=== PATIENT | female | born 1960 | race Caucasian/White ===

== ENCOUNTER 2016-04-21 21:50 | Emergency (ER) | payer OTHER ==
--- NOTE | 2016-04-21 23:24 | ED ORDER SUMMARY ---
..... Patient: IRMA GUZMAN OrderSheet [facility] VisitID: [id number] [address] [place] [address] 55y, F Registration Date/Time: 04/21/2016 ORDER SHEET Weight: 102.0 kg (stated) Allergies: Penicillins GENERAL ORDERS: US Pelvic Complete w Transvag Urgent (22:23 04/21/2016 Corey Ryan) (Ack 22:31 NHouse ER Tech1) (23:48 AMcQuoid ER Tech1) CBC w Diff Urgent (22:24 04/21/2016 Corey Ryan) (Ack 22:31 NHouse ER Tech1) (23:48 AMcQuoid ER Tech1) UA-Culture if indicated Urgent (22:24 04/21/2016 Corey Ryan) (Ack 22:31 NHouse ER Tech1) (23:48 AMcQuoid ER Tech1) BMP Urgent (22:24 04/21/2016 Corey Ryan) (Ack 22:31 NHouse ER Tech1) (23:48 AMcQuoid ER Tech1) Serum Quantitative Urgent (22:24 04/21/2016 Corey Ryan) (Ack 22:31 NHouse ER Tech1) (23:48 AMcQuoid ER Tech1) MEDICATION ORDERS: IV FLUIDS: Morphine IV 4 mg (HIGH ALERT MEDICATION, NOW) (22:22 04/21/2016 Corey Ryan) (22:52 EInderbitpepe R.N.) Zofran IV 4 mg (NOW) (22:22 04/21/2016 Corey Ryan) (22:50 EInderbitzen R.N.) IV Saline Lock (22:24 04/21/2016 Corey Ryan) (22:43 EInderbitzen R.N.) ORDER SHEET NOTES: [Electronically signed by Neisha Koroma R.N. (23:57 04/21/2016)] [Electronically signed by Alberto Markham Dr. (22:48 04/28/2016)] [Electronically locked/signed by Neisha Koroma R.N. (23:57 04/21/2016)]
--- NOTE | 2016-04-21 23:24 | ED ORDER SUMMARY ---
..... Patient: IRMA GUZMAN OrderSheet [facility] VisitID: [id number] [address] [place] [address] 55y, F Registration Date/Time: 04/21/2016 ORDER SHEET Weight: 102.0 kg (stated) Allergies: Penicillins GENERAL ORDERS: US Pelvic Complete w Transvag Urgent (22:23 04/21/2016 Corey Ryan) (Ack 22:31 NHouse ER Tech1) (23:48 AMcQuoid ER Tech1) CBC w Diff Urgent (22:24 04/21/2016 Corey Ryan) (Ack 22:31 NHouse ER Tech1) (23:48 AMcQuoid ER Tech1) UA-Culture if indicated Urgent (22:24 04/21/2016 Corey Ryan) (Ack 22:31 NHouse ER Tech1) (23:48 AMcQuoid ER Tech1) BMP Urgent (22:24 04/21/2016 Corey Ryan) (Ack 22:31 NHouse ER Tech1) (23:48 AMcQuoid ER Tech1) Serum Quantitative Urgent (22:24 04/21/2016 Corey Ryan) (Ack 22:31 NHouse ER Tech1) (23:48 AMcQuoid ER Tech1) MEDICATION ORDERS: IV FLUIDS: Morphine IV 4 mg (HIGH ALERT MEDICATION, NOW) (22:22 04/21/2016 Corey Ryan) (22:52 EInderbitpepe R.N.) Zofran IV 4 mg (NOW) (22:22 04/21/2016 Corey Ryan) (22:50 EInderbitzen R.N.) IV Saline Lock (22:24 04/21/2016 Corey Ryan) (22:43 EInderbitzen R.N.) ORDER SHEET NOTES: [Electronically signed by Neisha Koroma R.N. (23:57 04/21/2016)] [Electronically signed by Alberto Markham Dr. (22:48 04/28/2016)] [Electronically locked/signed by Neisha Koroma R.N. (23:57 04/21/2016)]
--- NOTE | 2016-04-21 23:24 | ED NURSING NOTES ---
Clinical Report - Nurses [facility] [address] [place] [address] 04/21/2016 21:53 Patient: IRMA GUZMAN TRIAGE Triage time 22:Apr 21 2016. Acuity: LEVEL 3. Chief Complaint: ABDOMINAL PAIN. 22:13 04/21/16. --22:20 Neisha Koroma R.N. 22:13 04/21/16. BP: 129/84. HR: 77. RR: 16. O2 saturation: 100%. Temp: 98.1 F. Pain level now: 08/11. --22:20 Neisha Koroma R.N. SEPSIS SCREEN: Sepsis Screen: negative. Negative (no infection suspected/documented). --22:20 Neisha Koroma R.N. Weight: 102 kg stated. Height/Length: 64 inches Per Patient. BMI: 38.6. --22:12 Neisha Koroma R.N. Medications Percocet Oral. --22:14 Neisha Koroam R.N. Synthroid Oral. --22:14 Neisha Koroma R.N. Medication/allergy information source: the patient. --22:20 Neisha Koroma R.N. Allergies Penicillins. --22:18 Neisha Koroma R.N. The following entry was struck by Neisha Koroma R.N., 22:18 (04/21/16) Reason - wrong value. <<STRICKEN ENTRY-- No Known Drug Allergy. --22:14 Neisha Koroma R.N. --END STRIKE>>. History Arrived by private vehicle. Historian: patient. Accompanied by family. Onset. (3 days). ( Pain started 3 days ago, acutely worse tonight with nausea. Took a percocet that she had left over following dental surgery with some relief.). She has had nausea, constipation and abdominal pain. No vomiting, diarrhea or fever. Last oral intake by patient was (just prior to arrival). Treatment CORE DIPPER: None. SOCIAL HX: Never smoker. No alcohol use or drug use. No recent travel. No infectious disease exposure. No known contact with a sick individual. ABUSE ASSESSMENT: No report of abuse. SELF HARM ASSESSMENT: A self harm assessment was performed. The patient answered "no" to the question "Have you recently felt down, depressed, or hopeless?", "Have you noticed less interest or pleasure in doing things?", "Do you have thoughts of harming or killing yourself?", "Are you here because you tried to hurt yourself?", "Have you ever tried to hurt yourself before today?", "Have you recently had thoughts about harming or killing others?" and "Do you have any dangerous items in your possession?". FALL RISK ASSESSMENT: Fall risk assessment completed. No fall risk identified. NUTRITIONAL RISK ASSESSMENT: The nutritional risk assessment revealed no deficiencies. FUNCTIONAL ASSESSMENT: Functional assessment: no impairments noted. LEARNING NEEDS ASSESSMENT: The learning needs assessment revealed no barriers. SKIN INTEGRITY ASSESSMENT: Skin integrity risk assessment completed. No skin integrity risk identified. --22:20 Neisha Koroma R.N. PROBLEMS: Hypothyroidism. --22:15 Neisha Koroma R.N. ADDITIONAL SURGERIES: . --22:15 Neisha Koroma R.N. Interventions ID band on patient. --22:20 Neisha Koroma R.N. PHYSICAL ASSESSMENT 22:20 04/21/16. Ambulatory to room. GENERAL / NEURO / PSYCH: Alert. Oriented X 4. Appears in pain and anxious. RESPIRATORY: Respirations not labored. Breath sounds within normal limits. CVS: Capillary refill less than 2 seconds. GI / : The patient has had nausea. Abdomen soft. Abdominal tenderness present. Abdominal tenderness in the lower abdomen. No guarding or rebound tenderness. No rebound tenderness, abdominal distention or diarrhea. SKIN: Skin is warm and dry. --22:29 Neisha Koroma R.N. NURSING PROGRESS NOTES 22:13 04/21/16. The initial plan of care for this patient includes an assessment with efforts to address the presence of pain; impairment of the gastrointestinal system; hydration needs. This plan of care was discussed with the patient. Patient gowned. Reassurance given. Patient identifiers checked. Call light placed in reach. Side rails up x 1. Bed placed in lowest position. Brakes of bed on. Patient ready for evaluation. --22:28 Neisha Koroma R.N. 22:25 04/21/16. Patient ID band checked for patient name and birthdate: patient confirmed. Instructions provided to collect clean catch urine and patient verbalized understanding. Clean catch urine collected with return of yellow-colored clear urine; sample sent to lab for urinalysis. Specimen labeled in the presence of the patient. --22:29 Neisha Koroma R.N. 22:28 04/21/2016 Site #1 started via IV in the left antecubital space with an 20g angiocath, with aseptic technique and good blood return; one attempt. Blood drawn: rainbow set. Labeled in the presence of the patient and sent to the lab. Saline lock flushed with 10 mL saline. --22:28 Neisha Koroma R.N. 22:46 04/21/2016 Zofran (Ondansetron HCl) IVP 4 mg given over 1 minute(s) via site #1. Allergies verified and confirmed 5 rights. IV patency established. IV site checked: no pain, redness, or swelling. IV flushed thoroughly pre- and post-medication administration. IVP given by RN. --22:50 Neisha Koroma R.N. 22:46 04/21/2016 Morphine IVP 4 mg given over 2 minute(s) via site #1. Allergies verified, confirmed 5 rights and sedative warning given to the patient. IV patency established. IV site checked: no pain, redness, or swelling. IV flushed thoroughly pre- and post-medication administration. IVP given by RN. --22:52 Neisha Koroma R.N. 22:56 04/21/16. Bedside pelvic sonogram performed by lens coating technician. --22:56 Neisha Koroma R.N. DISPOSITION / DISCHARGE 23:55 04/21/2016 Site #1 removed upon discharge. Catheter intact. Bandaid applied. --23:55 Neisha Koroma R.N. 23:55 04/21/16. Condition at departure: improved and stable. The goals identified in the patient's plan of care were met. No learning barriers present. Discharge instructions provided and reviewed with the patient. Reviewed medication(s) side effects, precautions, dosing and course information. Prescription(s) given to the patient (percocet, zofran, motrin). Reviewed referral to a oracle adf consultant for followup and testing. Activity restrictions reviewed (no driving while taking percocet). Patient verbalized understanding. Written instructions provided in [place] Zealander. The patient was discharged home and accompanied by qa automation developer. She left the Emergency Department ambulatory and via private vehicle. Commodity Loan Clerk driving. FALL RISK ASSESSMENT: Fall risk assessment completed. No fall risk identified. --23:55 Neisha Koroma R.N. 23:55 04/21/16. BP: 120/89. HR: 78. RR: 16. O2 saturation: 100%. Temp: 98.5 F. Pain level now 2/10. --23:55 Neisha Koroma R.N. Departure time: 23:56 Apr 21 2016. --23:56 Neisha Koroma R.N. Locked/Released at 04/21/2016 23:57 by Neisha Koroma R.N.
--- NOTE | 2016-04-21 23:24 | ED NURSING NOTES ---
Clinical Report - Nurses [facility] [address] [place] [address] 04/21/2016 21:53 Patient: IRMA GUZMAN TRIAGE Triage time 22:Apr 21 2016. Acuity: LEVEL 3. Chief Complaint: ABDOMINAL PAIN. 22:13 04/21/16. --22:20 Neisha Koroma R.N. 22:13 04/21/16. BP: 129/84. HR: 77. RR: 16. O2 saturation: 100%. Temp: 98.1 F. Pain level now: 08/11. --22:20 Neisha Koroma R.N. SEPSIS SCREEN: Sepsis Screen: negative. Negative (no infection suspected/documented). --22:20 Neisha Koroma R.N. Weight: 102 kg stated. Height/Length: 64 inches Per Patient. BMI: 38.6. --22:12 Neisha Koroma R.N. Medications Percocet Oral. --22:14 Neisha Koroma R.N. Synthroid Oral. --22:14 Neisha Koroma R.N. Medication/allergy information source: the patient. --22:20 Neisha Koroma R.N. Allergies Penicillins. --22:18 Neisha Koroma R.N. The following entry was struck by Neisha Koroma R.N., 22:18 (04/21/16) Reason - wrong value. <<STRICKEN ENTRY-- No Known Drug Allergy. --22:14 Neisha Koroma R.N. --END STRIKE>>. History Arrived by private vehicle. Historian: patient. Accompanied by family. Onset. (3 days). ( Pain started 3 days ago, acutely worse tonight with nausea. Took a percocet that she had left over following dental surgery with some relief.). She has had nausea, constipation and abdominal pain. No vomiting, diarrhea or fever. Last oral intake by patient was (just prior to arrival). Treatment THIRD OFFICER: None. SOCIAL HX: Never smoker. No alcohol use or drug use. No recent travel. No infectious disease exposure. No known contact with a sick individual. ABUSE ASSESSMENT: No report of abuse. SELF HARM ASSESSMENT: A self harm assessment was performed. The patient answered "no" to the question "Have you recently felt down, depressed, or hopeless?", "Have you noticed less interest or pleasure in doing things?", "Do you have thoughts of harming or killing yourself?", "Are you here because you tried to hurt yourself?", "Have you ever tried to hurt yourself before today?", "Have you recently had thoughts about harming or killing others?" and "Do you have any dangerous items in your possession?". FALL RISK ASSESSMENT: Fall risk assessment completed. No fall risk identified. NUTRITIONAL RISK ASSESSMENT: The nutritional risk assessment revealed no deficiencies. FUNCTIONAL ASSESSMENT: Functional assessment: no impairments noted. LEARNING NEEDS ASSESSMENT: The learning needs assessment revealed no barriers. SKIN INTEGRITY ASSESSMENT: Skin integrity risk assessment completed. No skin integrity risk identified. --22:20 Neisha Koroma R.N. PROBLEMS: Hypothyroidism. --22:15 Neisha Koroma R.N. ADDITIONAL SURGERIES: . --22:15 Neisha Koroma R.N. Interventions ID band on patient. --22:20 Neisha Koroma R.N. PHYSICAL ASSESSMENT 22:20 04/21/16. Ambulatory to room. GENERAL / NEURO / PSYCH: Alert. Oriented X 4. Appears in pain and anxious. RESPIRATORY: Respirations not labored. Breath sounds within normal limits. CVS: Capillary refill less than 2 seconds. GI / : The patient has had nausea. Abdomen soft. Abdominal tenderness present. Abdominal tenderness in the lower abdomen. No guarding or rebound tenderness. No rebound tenderness, abdominal distention or diarrhea. SKIN: Skin is warm and dry. --22:29 Neisha Koroma R.N. NURSING PROGRESS NOTES 22:13 04/21/16. The initial plan of care for this patient includes an assessment with efforts to address the presence of pain; impairment of the gastrointestinal system; hydration needs. This plan of care was discussed with the patient. Patient gowned. Reassurance given. Patient identifiers checked. Call light placed in reach. Side rails up x 1. Bed placed in lowest position. Brakes of bed on. Patient ready for evaluation. --22:28 Neisha Koroma R.N. 22:25 04/21/16. Patient ID band checked for patient name and birthdate: patient confirmed. Instructions provided to collect clean catch urine and patient verbalized understanding. Clean catch urine collected with return of yellow-colored clear urine; sample sent to lab for urinalysis. Specimen labeled in the presence of the patient. --22:29 Neisha Koroma R.N. 22:28 04/21/2016 Site #1 started via IV in the left antecubital space with an 20g angiocath, with aseptic technique and good blood return; one attempt. Blood drawn: rainbow set. Labeled in the presence of the patient and sent to the lab. Saline lock flushed with 10 mL saline. --22:28 Neisha Koroma R.N. 22:46 04/21/2016 Zofran (Ondansetron HCl) IVP 4 mg given over 1 minute(s) via site #1. Allergies verified and confirmed 5 rights. IV patency established. IV site checked: no pain, redness, or swelling. IV flushed thoroughly pre- and post-medication administration. IVP given by RN. --22:50 Neisha Koroma R.N. 22:46 04/21/2016 Morphine IVP 4 mg given over 2 minute(s) via site #1. Allergies verified, confirmed 5 rights and sedative warning given to the patient. IV patency established. IV site checked: no pain, redness, or swelling. IV flushed thoroughly pre- and post-medication administration. IVP given by RN. --22:52 Neisha Koroma R.N. 22:56 04/21/16. Bedside pelvic sonogram performed by crime lab technician. --22:56 Neisha Koroma R.N. DISPOSITION / DISCHARGE 23:55 04/21/2016 Site #1 removed upon discharge. Catheter intact. Bandaid applied. --23:55 Neisha Koroma R.N. 23:55 04/21/16. Condition at departure: improved and stable. The goals identified in the patient's plan of care were met. No learning barriers present. Discharge instructions provided and reviewed with the patient. Reviewed medication(s) side effects, precautions, dosing and course information. Prescription(s) given to the patient (percocet, zofran, motrin). Reviewed referral to a conference reservationist for followup and testing. Activity restrictions reviewed (no driving while taking percocet). Patient verbalized understanding. Written instructions provided in Norwegian. The patient was discharged home and accompanied by corporate trainer. She left the Emergency Department ambulatory and via private vehicle. Field Technical Support Consultant driving. FALL RISK ASSESSMENT: Fall risk assessment completed. No fall risk identified. --23:55 Neisha Koroma R.N. 23:55 04/21/16. BP: 120/89. HR: 78. RR: 16. O2 saturation: 100%. Temp: 98.5 F. Pain level now 2/10. --23:55 Neisha Koroma R.N. Departure time: 23:56 Apr 21 2016. --23:56 Neisha Koroma R.N. Locked/Released at 04/21/2016 23:57 by Neisha Koroma R.N.
--- NOTE | 2016-04-21 23:24 | ED CLINICAL REPORT ---
Clinical Report - Physicians/Mid Levels [facility] [address] [place] [address] 04/21/2016 21:53 Patient: IRMA GUZMAN Arrived- By private vehicle. Historian- patient. HISTORY OF PRESENT ILLNESS Chief Complaint: ABDOMINAL PAIN. Is still present and worsening. It was abrupt in onset and has been intermittent but is not gone now. At its maximum, severity described as moderate. When seen in the E.D., severity described as moderate. Modifying factors- worsened by movement. Relieved by rest. It is described as sharp and cramping. No radiation. It is described as located in the suprapubic area. No nausea, loss of appetite or diarrhea. No additional abdominal pain. (reports constipation recently. Last BM was several days ago.). No recent travel. Similar symptoms previously: None. Recent medical care: Not recently seen/assessed. REVIEW OF SYSTEMS No black stools, hematemesis, difficulty with urination, bloody stools or fever. No headache, sore throat, blurred vision, chest pain or difficulty breathing. She has had skin rash. All systems otherwise negative, except as recorded above. PAST HISTORY See nurses notes. Medications: Synthroid Oral. Percocet Oral. Allergies: Penicillins. SOCIAL HISTORY Never smoker. No alcohol use or drug use. No recent travel. Is a local resident. FAMILY HISTORY Negative. ADDITIONAL NOTES The nursing notes have been reviewed. PHYSICAL EXAM Vital Signs: Blood pressure normal. Oxygen saturation normal. Appearance: Alert. Oriented X3. No acute distress. CVS: Normal heart rate and rhythm. Heart sounds normal. Pulses normal. Respiratory: No respiratory distress. Breath sounds normal. Chest nontender. Abdomen: Soft and nontender. Abnormal bowel sounds (hypoactive). No organomegaly. No mass. Back: Normal inspection. Skin: Skin warm and dry. Normal skin color. No rash. Normal skin turgor. Extremities: Extremities exhibit normal ROM. No lower extremity edema. LABS, X-RAYS, AND EKG Pelvic Sonogram: PROCEDURE: US COMPLETE PELVIC W/TRANSVAG INDICATION: LOWER ABDO PAIN TECHNIQUE: Transabdominal and endovaginal noonan scale and color Doppler sonographic images of the female pelvis were obtained. 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 COMPARISON: None. FINDINGS: TRANSABDOMINAL SCANS: Moderate enlargement the uterus. Kidneys are normal. TRANSVAGINAL SCANS: Moderate enlargement the uterus secondary to fibroid changes (right body 6.2 cm, superior midline 4.0 cm with dystrophic calcifications). Ovaries not visualized (presumed atrophic). IMPRESSION: 1. Moderate enlargement of the uterus second multiple fibroids. The study was independently viewed by me and interpreted by the radiologist. The study was discussed with the radiologist (via pacs). Laboratory Tests: UA-Culture if indicated: (KAREN: 04/21/2016 22:18) ( Mscvd 04/21/2016 22:48) Final results Test Result Flag Units (Reference) URINE COLOR YELLOW URINE APPEARANCE CLEAR URINE GLUCOSE NEGATIVE (NEGATIVE) URINE BILIRUBIN NEGATIVE (NEGATIVE) URINE KETONE NEGATIVE (NEGATIVE) URINE SPECIFIC GRAVITY <= 1.005 L (1.010-1.030) URINE PH 5.5 (5.0-8.0) URINE PROTEIN NEGATIVE (NEGATIVE) URINE UROBILINOGEN 0.2 EU/dL (0.2-1.0) URINE NITRITE NEGATIVE (NEGATIVE) URINE BLOOD NEGATIVE (NEGATIVE) URINE LEUK ESTERASE NEGATIVE (NEGATIVE) URINE RBC NONE SEEN rbc/hpf (0-1) URINE WBC RARE wbc/hpf (0-1) URINE EPITHELIAL CELLS RARE EPI/hpf (0-5) URINE BACTERIA NONE SEEN (NONE SEEN) URINE COMMENT CULT NOT INDICATED URINE CULTURES ARE SET-UP BASED ON THE FOLLOWING CRITERIA:POSITIVE NITRITEPOSITIVE LEUKOCYTE ESTERASEGREATER THAN 10 WHITE BLOOD CELLSMODERATE (2+) OR GREATER BACTERIA CBC w Diff: (KAREN: 04/21/2016 22:18) ( MsgRcvd 04/21/2016 22:35) Final results Test Result Flag Units (Reference) WHITE BLOOD COUNT 11.2 K/uL (4.5-11.5) RED BLOOD COUNT 5.40 H M/uL (4.00-5.20) HEMOGLOBIN 14.5 gm/dL (12.0-16.0) HEMATOCRIT 44.3 % (36.0-46.0) MEAN CELL VOLUME 82 fL (80-100) MEAN CORPUSCULAR HGB 27 pg (26-34) MEAN CORPUSCULAR HGB CONC 33 g/dL (31-37) RED CELL DISTRIBUTION WIDTH 17.2 H % (11.6-14.8) PLATELET COUNT 269 K/uL (150-400) NEUTROPHIL % 81.5 H % (50-75) LYMPH % 10.1 L % (25-40) MONO % 7.3 % (3-14) EOSINOPHIL % 0.8 % (0-4) BASOPHIL % 0.3 % (0-2) BMP: (KAREN: 04/21/2016 22:18) ( MsgRcvd 04/21/2016 23:36) Final results Test Result Flag Units (Reference) GLUCOSE 108 mg/dL (70-110) BUN 18 mg/dL (7-18) CREATININE 1.7 H mg/dL (0.6-1.3) Estimated GFR 33.29 mL/min Estimated GFR- 40.35 mL/min Note: Persistent reduction over 3 months in eGFR<60 mL/min/1.73 m2 defines CKD. Patients with eGFR values>=60 mL/min/1.73 m2 may also have CKD if evidence ofpersistent proteinuria. Additional information may be foundat [email or web address].org. 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 PROGRESS AND PROCEDURES Course of Care: the patient is a pleasant 55-year-old female with past medical history significant for fibroids presenting for evaluation of lower pelvic pain. The patient is not reporting any vaginal discharge or bleeding. Workup has been ordered for evaluation of the patient's lower abdominal pain. Patient has no tenderness in McBurney's point. Do not feel patient has acute appendicitis. Urinalysis as well as complete blood cell count intellectual S have been also ordered. Medications for pain and nausea also been given. Patient is agreeable to the treatment and plan. Patient is nontoxic in appearance. Vital signs are unremarkable. Workup shows patient to have uterine fibroids. This is likely the source of the patient's pain here in the emergency department. Rest of the patient's workup is unremarkable. Patient continues to be nontoxic and continues to have a otherwise benign abdominal exam. Head discussion with patient in regards to her workup here in the emergency department today and need for follow-up with her primary care doctor The patient states that she can follow up with her MEDICAL LIAISON. In addition, had mentioned to patient the abnormal beta hCG testing. Patient had looked at me abnormally and states that she is not sexually active and cannot be . Informed patient of the abnormal laboratory tests and what it could possibly mean and need for further follow-up with her primary care doctor. Discussed the patient workup, diagnosis, home care, follow-up, and return precautions. All questions answered. The patient expressed understanding of these instructions and was agreeable to them. Do not feel patient has ectopic at this time. color patient does need repeat evaluation for the abnormal beta hCG today. Disposition: Discharged. Condition: good. CLINICAL IMPRESSION Acute suprapubic abdominal pain. abnormal beta-HCG test acute kidney injury. INSTRUCTIONS Warnings: GENERAL WARNINGS: Return or contact your physician immediately if your condition worsens or changes unexpectedly, if not improving as expected, or if other problems arise. SPECIFICALLY, return if you develop pain, fever, vomiting, the inability to keep fluids down, blood in vomitus, blood in diarrhea, fainting or lightheadedness. Your Current Medications: CONTINUE TAKING THE FOLLOWING MEDICATIONS: Percocet Oral. Synthroid Oral. Prescription Medications: Motrin 600 mg tablets: take 1 tablet orally every 6 hours as needed for pain, swelling or fever. Dispense fifteen (15). No refill. Substitution is permissible. Zofran ODT 4 mg: take 1 orally every 8 hours as needed for nausea and vomiting. Dispense ten (10). No refill. Substitution is permissible. Percocet 5 mg/325 mg: take 1 tablet orally every 6 hours as needed for pain. Dispense twelve (12). No refill. Substitution is permissible. Follow-up: Return to the emergency department as needed. Follow up with your doctor in three days. Reason for referral: recheck today's concerns. Summary of care provided to patient via paper. Screening today revealed the patient's blood pressure to be in the normal range. The patient should follow up with a primary care provider for blood pressure management. Understanding of the discharge instructions verbalized by patient. (Electronically signed by Alberto Markham Dr. 04/28/2016 22:48)
--- NOTE | 2016-04-22 00:03 | DIAGNOSTIC IMAGING REPORT ---
PROCEDURE: US COMPLETE PELVIC W/TRANSVAG INDICATION: LOWER ABDO PAIN TECHNIQUE: Transabdominal and endovaginal noonan scale and color Doppler sonographic images of the female pelvis were obtained. 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 COMPARISON: None. FINDINGS: TRANSABDOMINAL SCANS: Moderate enlargement the uterus. Kidneys are normal. TRANSVAGINAL SCANS: Moderate enlargement the uterus secondary to fibroid changes (right body 6.2 cm, superior midline 4.0 cm with dystrophic calcifications). Ovaries not visualized (presumed atrophic). IMPRESSION: 1. Moderate enlargement of the uterus second multiple fibroids. 2. Otherwise negative pelvic ultrasound.
--- NOTE | 2016-04-28 22:48 | ED MED RECONCILIATION SUMMARY ---
Patient: IRMA GUZMAN Medication Reconciliation Report [facility] VisitID: [id number] [address] [place] [address] 55y, F Registration Date/Time: 04/21/2016 Weight: 102.0 kg Height/Length: 64 in. BMI: 38.6 ALLERGIES: Penicillins The patient's Home Medications are listed below: CONTINUE TAKING THE FOLLOWING MEDICATIONS: Percocet Oral Synthroid Oral The source(s) of the original Home Medication information: patient The following Medications were given to the patient in the Emergency Department: Zofran [IVP] IVP 4 mg, administered: 04/21/2016 10:46:00 PM Morphine [IVP] IVP 4 mg, administered: 04/21/2016 10:46:00 PM The following Medications were prescribed to the patient: Motrin 600 mg tablets: take 1 tablet orally every 6 hours as needed for pain, swelling or fever. Dispense fifteen (15). No refill. Substitution is permissible. -- Alberto Markham Dr. Zofran ODT 4 mg: take 1 orally every 8 hours as needed for nausea and vomiting. Dispense ten (10). No refill. Substitution is permissible. -- Alberto Markham Dr. Percocet 5 mg/325 mg: take 1 tablet orally every 6 hours as needed for pain. Dispense twelve (12). No refill. Substitution is permissible. -- Alberto Markham Dr.
--- NOTE | 2016-04-28 22:48 | ED MAR SUMMARY ---
..... Medication Administration Record [facility] [address] [place] [address] Patient: IRMA GUZMAN Visit ID: [id number] 55y, F Weight: 102.0 kg Height/Length: 64 in BMI: 38.6 ALLERGIES: Penicillins Given 22:04/21/2016 Neisha Koroma R.N. Medication Administered: MORPHINE [IVP], Dose: 4 mg IVP over 2 minute(s), Site: #1 left AC. Medication Ordered: Morphine IV 4 mg (HIGH ALERT MEDICATION, NOW). Given 22:04/21/2016 Neisha Koroma R.N. Medication Administered: ZOFRAN [IVP] (ONDANSETRON HCL), Dose: 4 mg IVP over 1 minute(s), Site: #1 left AC. Medication Ordered: Zofran IV 4 mg (NOW).
--- NOTE | 2016-04-28 22:48 | ED MAR SUMMARY ---
..... Medication Administration Record [facility] [address] [place] [address] Patient: IRMA GUZMAN Visit ID: [id number] 55y, F Weight: 102.0 kg Height/Length: 64 in BMI: 38.6 ALLERGIES: Penicillins Given 22:04/21/2016 Neisha Koroma R.N. Medication Administered: MORPHINE [IVP], Dose: 4 mg IVP over 2 minute(s), Site: #1 left AC. Medication Ordered: Morphine IV 4 mg (HIGH ALERT MEDICATION, NOW). Given 22:04/21/2016 Neisha Koroma R.N. Medication Administered: ZOFRAN [IVP] (ONDANSETRON HCL), Dose: 4 mg IVP over 1 minute(s), Site: #1 left AC. Medication Ordered: Zofran IV 4 mg (NOW).
--- NOTE | 2016-04-28 22:48 | ED DISCHARGE INSTRUCTIONS ---
Patient: IRMA GUZMAN General Instructions [facility] VisitID: [id number] [address] [place] [address] 55y, F Registration Date/Time: 04/21/2016 Acute suprapubic abdominal pain. abnormal beta-HCG test acute kidney injury. INSTRUCTIONS Warnings: GENERAL WARNINGS: Return or contact your physician immediately if your condition worsens or changes unexpectedly, if not improving as expected, or if other problems arise. SPECIFICALLY, return if you develop pain, fever, vomiting, the inability to keep fluids down, blood in vomitus, blood in diarrhea, fainting or lightheadedness. Your Current Medications: CONTINUE TAKING THE FOLLOWING MEDICATIONS: Percocet Oral. Synthroid Oral. Prescription Medications: Motrin 600 mg tablets: take 1 tablet orally every 6 hours as needed for pain, swelling or fever. Dispense fifteen (15). No refill. Substitution is permissible. Zofran ODT 4 mg: take 1 orally every 8 hours as needed for nausea and vomiting. Dispense ten (10). No refill. Substitution is permissible. Percocet 5 mg/325 mg: take 1 tablet orally every 6 hours as needed for pain. Dispense twelve (12). No refill. Substitution is permissible. Follow-up: Return to the emergency department as needed. Follow up with your doctor in three days. Reason for referral: recheck today's concerns. Summary of care provided to patient via paper. Screening today revealed the patient's blood pressure to be in the normal range. The patient should follow up with a primary care provider for blood pressure management. Understanding of the discharge instructions verbalized by patient. ADDITIONAL INFORMATION Abdominal Pain, Unknown Cause (Female) The exact cause of your abdominal (stomach) pain is not certain. This does not mean that this is something to worry about, or the right tests were not done. Everyone likes to know the exact cause of the problem, but sometimes with abdominal pain, there is no clear-cut cause, and this could be a good thing. The good news is that your symptoms can be treated, and you will feel better. Your condition does not seem serious now; however, sometimes the signs of a serious problem may take more time to appear. For this reason,it is important for you to watch for any new symptoms, problems,or worsening of your condition. Over the next few days, the abdominal pain may come and go, or be continuous. Other common symptoms can include nausea and vomiting. Sometimes it can be difficult to tell if you feel nauseous, you may just feel bad and not associate that feeling with nausea. Constipation, diarrhea, and a fever may go along with the pain. The pain may continue even if treated correctly over the following days. Depending on how things go, sometimes the cause can become clear and may require further or different treatment. Additional evaluations, medications, or tests may be needed. Home care Your health care provider may prescribe medications for pain, symptoms, or an infection. Follow the health care provider's instructions for taking these medications. General care Rest until your next exam. No strenuous activities. Try to find positions that ease discomfort. A small pillow placed on the abdomen may help relieve pain. Something warm on your abdomen (such as a heating pad) may help, but be careful not to burn yourself. Diet Do not force yourself to eat, especially if having cramps, vomiting, or diarrhea. Water is important so you do not get dehydrated. Soup may also be good. Sports drinks may also help, especially if they are not too acidic. Make sure you don't drink sugary drinks as this can make things worse. Take liquids in small amounts. Do not guzzle them. Caffeine sometimes makes the pain and cramping worse. Avoid dairy products if you have vomiting or diarrhea. Don't eat large amounts at a time. Wait a few minutes between bites. Eat a diet low in fiber (called a low-residue diet). Foods allowed include refined breads, white rice, fruit and vegetable juices without pulp, tender meats. These foods will pass more easily through the intestine. Avoid whole-grain foods, whole fruits and vegetables, meats, seeds and nuts, fried or fatty foods, dairy, alcohol and spicy foods until your symptoms go away. Follow-up care Follow up with your health care provider as instructed, or if your pain does not begin to improve in the next 24 hours. When to seek medical care Seek prompt medical care if any of the following occur: Pain gets worse or moves to the right lower abdomen New or worsening vomiting or diarrhea Swelling of the abdomen Unable to pass stool for more than three days Fever of 100.4F (38C) or higher, or as directed by your healthcare provider. Blood in vomit or bowel movements (dark red or black color) Jaundice (yellow color of eyes and skin) Weakness, dizziness Chest, arm, back, neck or jaw pain Unexpected vaginal bleeding or missed period Call 911 Call emergency services if any of the following occur: Trouble breathing Confusion Fainting or loss of consciousness Rapid heart rate Seizure Ibuprofen Oral tablet What is this medicine? IBUPROFEN (eye BYOO proe fen) is a non-steroidal anti-inflammatory drug (NSAID). It is used for dental pain, fever, headaches or migraines, osteoarthritis, rheumatoid arthritis, or painful monthly periods. It can also relieve minor aches and pains caused by a cold, flu, or sore throat. How should I use this medicine? Take this medicine by mouth with a glass of water. Follow the directions on the prescription label. Take this medicine with food if your stomach gets upset. Try to not lie down for at least 10 minutes after you take the medicine. Take your medicine at regular intervals. Do not take your medicine more often than directed. A special MedGuide will be given to you by the pharmacist with each prescription and refill. Be sure to read this information carefully each time. Talk to your copy and print associate regarding the use of this medicine in children. Special care may be needed. What side effects may I notice from receiving this medicine? Side effects that you should report to your doctor or health child care specialist as soon as possible: allergic reactions like skin rash, itching or hives, swelling of the face, lips, or tongue black or bloody stools, blood in the urine or in vomit breathing problems changes in vision chest pain general ill feeling or flu-like symptoms nausea or vomiting redness, blistering, peeling or loosening of the skin, including inside the mouth slurred speech or weakness on one side of the body stomach pain unexplained weight gain or swelling unusually weak or tired yellowing of eyes or skin Side effects that usually do not require medical attention (report to your doctor or health child care specialist if they continue or are bothersome): constipation or diarrhea dizziness gas or heartburn stomach upset What may interact with this medicine? Do not take this medicine with any of the following medications: cidofovir ketorolac methotrexate pemetrexed This medicine may also interact with the following medications: alcohol aspirin diuretics lithium other drugs for inflammation like prednisone warfarin What if I miss a dose? If you miss a dose, take it as soon as you can. If it is almost time for your next dose, take only that dose. Do not take double or extra doses. Where should I keep my medicine? Keep out of the reach of children. Store at room temperature between 15 and 30 degrees C (59 and 86 degrees F). Keep container tightly closed. Throw away any unused medicine after the expiration date. What should I tell my health care provider before I take this medicine? They need to know if you have any of these conditions: asthma cigarette smoker drink more than 3 alcohol containing drinks a day heart disease or circulation problems such as heart failure or leg edema (fluid retention) high blood pressure kidney disease liver disease stomach bleeding or ulcers an unusual or allergic reaction to ibuprofen, aspirin, other NSAIDS, other medicines, foods, dyes, or preservatives or trying to get breast-feeding What should I watch for while using this medicine? Tell your doctor or healthcare professional if your symptoms do not start to get better or if they get worse. This medicine does not prevent heart attack or stroke. In fact, this medicine may increase the chance of a heart attack or stroke. The chance may increase with longer use of this medicine and in people who have heart disease. If you take aspirin to prevent heart attack or stroke, talk with your doctor or health child care specialist. Do not take other medicines that contain aspirin, ibuprofen, or naproxen with this medicine. Side effects such as stomach upset, nausea, or ulcers may be more likely to occur. Many medicines available without a prescription should not be taken with this medicine. This medicine can cause ulcers and bleeding in the stomach and intestines at any time during treatment. Ulcers and bleeding can happen without warning symptoms and can cause . To reduce your risk, do not smoke cigarettes or drink alcohol while you are taking this medicine. You may get drowsy or dizzy. Do not drive, use machinery, or do anything that needs mental alertness until you know how this medicine affects you. Do not stand or sit up quickly, especially if you are an older patient. This reduces the risk of dizzy or fainting spells. This medicine can cause you to bleed more easily. Try to avoid damage to your teeth and gums when you brush or floss your teeth. Ondansetron Oral disintegrating tablet What is this medicine? ONDANSETRON (on MAXX se marco) is used to treat nausea and vomiting caused by chemotherapy. It is also used to prevent or treat nausea and vomiting after surgery. How should I use this medicine? These tablets are made to dissolve in the mouth. Do not try to push the tablet through the foil backing. With dry hands, peel away the foil backing and gently remove the tablet. Place the tablet in the mouth and allow it to dissolve, then swallow. While you may take these tablets with water, it is not necessary to do so. Talk to your copy and print associate regarding the use of this medicine in children. Special care may be needed. What side effects may I notice from receiving this medicine? Side effects that you should report to your doctor or health child care specialist as soon as possible: allergic reactions like skin rash, itching or hives, swelling of the face, lips, or tongue breathing problems dizziness fast or irregular heartbeat feeling faint or lightheaded, falls fever and chills swelling of the hands and feet tightness in the chest Side effects that usually do not require medical attention (report to your doctor or health child care specialist if they continue or are bothersome): constipation or diarrhea headache What may interact with this medicine? Do not take this medicine with any of the following medications: -apomorphine -cisapride -dofetilide -dronedarone -pimozide -thioridazine -ziprasidone This medicine may also interact with the following medications: -carbamazepine -phenytoin -rifampicin -tramadol -other medicines that prolong the QT interval (cause an abnormal heart rhythm) What if I miss a dose? If you miss a dose, take it as soon as you can. If it is almost time for your next dose, take only that dose. Do not take double or extra doses. Where should I keep my medicine? Keep out of the reach of children. Store between 2 and 30 degrees C (36 and 86 degrees F). Throw away any unused medicine after the expiration date. What should I tell my health care provider before I take this medicine? They need to know if you have any of these conditions: heart disease history of irregular heartbeat liver disease low levels of magnesium or potassium in the blood an unusual or allergic reaction to ondansetron, granisetron, other medicines, foods, dyes, or preservatives or trying to get breast-feeding What should I watch for while using this medicine? Check with your doctor or health child care specialist as soon as you can if you have any sign of an allergic reaction. Oxycodone Hydrochloride, Acetaminophen Oral tablet What is this medicine? ACETAMINOPHEN; OXYCODONE (a set a LASHA yue fen; ox i KOE done) is a pain reliever. It is used to treat mild to moderate pain. How should I use this medicine? Take this medicine by mouth with a full glass of water. Follow the directions on the prescription label. Take your medicine at regular intervals. Do not take your medicine more often than directed. Talk to your copy and print associate regarding the use of this medicine in children. Special care may be needed. Patients over 65 years old may have a stronger reaction and need a smaller dose. What side effects may I notice from receiving this medicine? Side effects that you should report to your doctor or health child care specialist as soon as possible: allergic reactions like skin rash, itching or hives, swelling of the face, lips, or tongue breathing difficulties, wheezing confusion light headedness or fainting spells severe stomach pain yellowing of the skin or the whites of the eyes Side effects that usually do not require medical attention (report to your doctor or health child care specialist if they continue or are bothersome): dizziness drowsiness nausea vomiting What may interact with this medicine? alcohol antihistamines barbiturates like amobarbital, butalbital, butabarbital, methohexital, pentobarbital, phenobarbital, thiopental, and secobarbital benztropine drugs for bladder problems like solifenacin, trospium, oxybutynin, tolterodine, hyoscyamine, and methscopolamine drugs for breathing problems like ipratropium and tiotropium drugs for certain stomach or intestine problems like propantheline, homatropine methylbromide, glycopyrrolate, atropine, belladonna, and dicyclomine general anesthetics like etomidate, ketamine, nitrous oxide, propofol, desflurane, enflurane, halothane, isoflurane, and sevoflurane medicines for depression, anxiety, or psychotic disturbances medicines for sleep muscle relaxants naltrexone narcotic medicines (opiates) for pain phenothiazines like perphenazine, thioridazine, chlorpromazine, mesoridazine, fluphenazine, prochlorperazine, promazine, and trifluoperazine scopolamine tramadol trihexyphenidyl What if I miss a dose? If you miss a dose, take it as soon as you can. If it is almost time for your next dose, take only that dose. Do not take double or extra doses. Where should I keep my medicine? Keep out of the reach of children. This medicine can be abused. Keep your medicine in a safe place to protect it from theft. Do not share this medicine with anyone. Selling or giving away this medicine is dangerous and against the law. Store at room temperature between 20 and 25 degrees C (68 and 77 degrees F). Keep container tightly closed. Protect from light. This medicine may cause accidental overdose and if it is taken by other adults, children, or pets. Flush any unused medicine down the toilet to reduce the chance of harm. Do not use the medicine after the expiration date. What should I tell my health care provider before I take this medicine? They need to know if you have any of these conditions: brain tumor Crohn's disease, inflammatory bowel disease, or ulcerative colitis drink more than 3 alcohol containing drinks per day drug abuse or addiction head injury heart or circulation problems kidney disease or problems going to the bathroom liver disease lung disease, asthma, or breathing problems an unusual or allergic reaction to acetaminophen, oxycodone, other opioid analgesics, other medicines, foods, dyes, or preservatives or trying to get breast-feeding What should I watch for while using this medicine? Tell your doctor or health child care specialist if your pain does not go away, if it gets worse, or if you have new or a different type of pain. You may develop tolerance to the medicine. Tolerance means that you will need a higher dose of the medication for pain relief. Tolerance is normal and is expected if you take this medicine for a long time. Do not suddenly stop taking your medicine because you may develop a severe reaction. Your body becomes used to the medicine. This does NOT mean you are addicted. Addiction is a behavior related to getting and using a drug for a non-medical reason. If you have pain, you have a medical reason to take pain medicine. Your doctor will tell you how much medicine to take. If your doctor wants you to stop the medicine, the dose will be slowly lowered over time to avoid any side effects. You may get drowsy or dizzy. Do not drive, use machinery, or do anything that needs mental alertness until you know how this medicine affects you. Do not stand or sit up quickly, especially if you are an older patient. This reduces the risk of dizzy or fainting spells. Alcohol may interfere with the effect of this medicine. Avoid alcoholic drinks. There are different types of narcotic medicines (opiates) for pain. If you take more than one type at the same time, you may have more side effects. Give your health care provider a list of all medicines you use. Your doctor will tell you how much medicine to take. Do not take more medicine than directed. Call emergency for help if you have problems breathing. The medicine will cause constipation. Try to have a bowel movement at least every 2 to 3 days. If you do not have a bowel movement for 3 days, call your doctor or health child care specialist. Do not take Tylenol (acetaminophen) or medicines that have acetaminophen with this medicine. Too much acetaminophen can be very dangerous. Many nonprescription medicines contain acetaminophen. Always read the labels carefully to avoid taking more acetaminophen. You have been given the following additional information: Abdominal Pain, Unknown Cause, (Female) Ibuprofen Oral tablet Ondansetron Oral disintegrating tablet Oxycodone Hydrochloride, Acetaminophen Oral tablet (Electronically signed by Alberto Markham Dr. 04/28/2016 22:48)
--- NOTE | 2016-04-28 22:48 | ED MED RECONCILIATION SUMMARY ---
Patient: IRMA GUZMAN Medication Reconciliation Report [facility] VisitID: [id number] [place] [address] 55y, F Registration Date/Time: 04/21/2016 Weight: 102.0 kg Height/Length: 64 in. BMI: 38.6 ALLERGIES: Penicillins The patient's Home Medications are listed below: CONTINUE TAKING THE FOLLOWING MEDICATIONS: Percocet Oral Synthroid Oral The source(s) of the original Home Medication information: patient The following Medications were given to the patient in the Emergency Department: Zofran [IVP] IVP 4 mg, administered: 04/21/2016 10:46:00 PM Morphine [IVP] IVP 4 mg, administered: 04/21/2016 10:46:00 PM The following Medications were prescribed to the patient: Motrin 600 mg tablets: take 1 tablet orally every 6 hours as needed for pain, swelling or fever. Dispense fifteen (15). No refill. Substitution is permissible. -- Alberto Markham Dr. Zofran ODT 4 mg: take 1 orally every 8 hours as needed for nausea and vomiting. Dispense ten (10). No refill. Substitution is permissible. -- Alberto Markham Dr. Percocet 5 mg/325 mg: take 1 tablet orally every 6 hours as needed for pain. Dispense twelve (12). No refill. Substitution is permissible. -- Alberto Markham Dr.
== END 2016-04-21 23:56 | disposition home or self-care (01) ==
LOC: ED SRH 21:50
DX: R10.2 Pelvic and perineal pain (principal); R79.89 Other specified abnormal findings of blood chemistry; N17.9 Acute kidney failure, unspecified; Z79.891 Long term (current) use of opiate analgesic; Z88.0 Allergy status to penicillin
CPT/HCPCS: 90004; 90047; 90197; 93070; 95059